=== PATIENT | female | born 1965 | race Caucasian/White ===

== ENCOUNTER → 2017-04-06 | Outpatient (CLI) | payer MEDICARE, OTHER, SELFPAY | LOC: MW.CHPS 08:00 | PROVIDERS: ATTEND Plastic Surgery | DX: M65.312 Trigger thumb, left thumb (principal) | CPT/HCPCS: 20550; 99214; J3301 ==

== ENCOUNTER 2017-04-29 06:32 | Day surgery (SDC) | payer MEDICARE, OTHER, SELFPAY ==
[2017-04-29] MEDS ORDERED: Midazolam 1 MG/ML 2 ML SDV ONE (06:57)
[2017-04-29] MEDS ORDERED: fentaNYL 100 MCG/2 ML SDV ONE (06:57)
[2017-04-29] MEDS ORDERED: Propofol 200 MG/20 ML SDV ONE (06:57)
[2017-04-29] MEDS ORDERED: ceFAZolin 1 GM Vial ONE (06:59)
--- NOTE | 2017-04-29 07:10 | PCM.PREANE ---
Preanesthetic Assessment - Anesthesia/Transfusion/Family Hx Anesthesia History: Prior Anesthesia Without Reaction Other Type of Anesthesia Reaction Comment: Denies any problems in past Family History of Anesthesia Reaction: No Transfusion History: Prior Transfusion Without Reaction Intubation History: Unknown - Review of Systems General: No Symptoms Pulmonary: No Symptoms Cardiovascular: No Symptoms Gastrointestinal: No symptoms Neurological: No Symptoms Other: Reports: None - Physical Assessment O2 Sat by Pulse Oximetry: 96 Respiratory Rate: 16 Vital Signs: Last Vital Signs Temp 37.1 C 04/29/17 07:01 Pulse 61 04/29/17 07:01 Resp 16 04/29/17 07:01 BP 115/67 04/29/17 07:01 Pulse Ox 96 04/29/17 07:01 Height: 1.75 m Weight: 81.193 kg ASA Class: 2 Mental Status: Alert & Oriented x3 Airway Class: Mallampati = 2 Dentition: Reports: Dentures (upper and lower) Thyro-Mental Finger Breadths: 3 Mouth Opening Finger Breadths: 3 ROM/Head Extension: Limited/Partial Lungs: Clear to auscultation, Normal respiratory effort Cardiovascular: Regular Rate, Regular Rhythm - Allergies Allergies/Adverse Reactions: Allergies Allergy/AdvReac Type Severity Reaction Status Date / Time aspirin Allergy thrombocyto Verified 04/23/17 12:38 penia codeine Allergy Stomach Verified 02/05/15 14:29 Ache - Blood Blood Available: No - Anesthesia Plan Pre-Op Medication Ordered: None - Acknowledgements Anesthesia Type Planned: MAC Pt an Appropriate Candidate for the Planned Anesthesia: Yes Alternatives and Risks of Anesthesia Discussed w Pt/Guardian: Yes Pt/Guardian Understands and Agrees with Anesthesia Plan: Yes PreAnesthesia Questionnaire HEENT History: Reports: Allergic Rhinitis Other HEENT History: wears glasses, has top and bottom dentures Cardiovascular History: Respiratory History: Reports: Bronchitis, Recurrent, Other (See Below) Other Respiratory History: chronic bronchitis Gastrointestinal History: Reports: Other (See Below) Other Gastrointestinal History: h/o gastric ulcer Genitourinary History: Reports: Renal Calculus, Other (See Below) Other Genitourinary History: 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 CREDIT RISK ANALYST History: Reports: Musculoskeletal History: Reports: Fibromyalgia, Osteoarthritis Neurological History: Reports: Migraines (h/o migraines) Endocrine/Metabolic History: Reports: None Hematologic History: Reports: Blood Transfusion(s) Other Hematologic History: blood transfusion for post bleed Oncologic (Cancer) History: Dermatologic History: Reports: Other (See Below) Other Dermatologic History: hx I&D skin abscess - Past Surgical History Head Surgeries/Procedures: Reports: None HEENT Surgical History: Reports: Tonsillectomy GI Surgical History: Reports: Cholecystectomy, EGD, Other (See Below) (I&D of perianal abscess) Female Surgical History: Reports: Hysterectomy, Nephrectomy (partial), Tubal Ligation Neurological Surgical History: Reports: C-Spine Other Neurological Surgeries/Procedures: hx neck surgery (ACDF) Musculoskeletal Surgical History: Reports: Arthroscopic Knee, Carpal Tunnel Other Musculoskeletal Surgeries/Procedures:: knee arthroscopy x2, rt thumb trigger finger release, francisco carpal tunnel release - SUBSTANCE USE Smoking Status *Q: Current Every Day Smoker (down to 1/2 ppd) Tobacco Use Within Last Twelve Months: Cigarettes Second Hand Smoke Exposure: Yes Days Per Week of Alcohol Use: 0 Number of Drinks Per Day: 0 Total Drinks Per Week: 0 Recreational Drug Use History: No - HOME MEDS Home Medications: Home Meds Albuterol Sulfate [Albuterol Sulfate HFA] 1 - 2 inh INH ASDIRECTED PRN 02/05/15 [History] traMADol HCl [Tramadol HCl] 1 tab PO ASDIRECTED PRN 02/05/15 [History] - CURRENT (IN HOUSE) MEDS Current Meds: Current Medications Bupivacaine HCl/Epinephrine Bitart (Marcaine 0.25%/Epinephrine 1:200,000) 10 ml INJECT ONETIME ONE Stop: 04/29/17 08:01 Lactated Ringer's (Ringers, Lactated) 1,000 mls @ 125 mls/hr IV ASDIRECTED ZHENG Last Admin: 04/29/17 07:00 Dose: 125 mls/hr Cefazolin Sodium/Dextrose 2 gm (/ Premix) 50 mls @ 100 mls/hr IV ONETIME ONE Stop: 04/29/17 07:59 Tramadol HCl (Ultram) 50 mg PO Q4H PRN PRN Reason: Pain Discontinued Medications Cefazolin Sodium (Ancef) Confirm Administered Dose 2 gm .ROUTE .STK-MED ONE Stop: 04/29/17 07:00 Fentanyl (Sublimaze) Confirm Administered Dose 100 mcg .ROUTE .STK-MED ONE Stop: 04/29/17 06:58 Midazolam HCl (Versed 1 Mg/Ml) Confirm Administered Dose 2 mg .ROUTE .STK-MED ONE Stop: 04/29/17 06:58 Propofol (Diprivan 20 Ml) Confirm Administered Dose 200 mg .ROUTE .STK-MED ONE Stop: 04/29/17 06:58
[2017-04-29] MEDS ORDERED: Bupivacaine 0.25%/EPINEPHrine 1:200,000 10 ML SDV ONE (07:12)
[2017-04-29] MEDS ORDERED: ceFAZolin 2 GM in Premix Bag 1 BAG IV ONE (07:30)
[2017-04-29] MEDS ORDERED: Lactated Ringers 1,000 ML IV SCH (08:00)
[2017-04-29] MEDS ORDERED: Bupivacaine 0.25%/EPINEPHrine 1:200,000 10 ML SDV INJECT ONE (08:00)
[2017-04-29] MEDS ORDERED: traMADol 50 MG Tab PO PRN (08:00)
[2017-04-29] MEDS ORDERED: fentaNYL 100 MCG/2 ML SDV IVPUSH PRN (08:31)
--- NOTE | 2017-04-29 08:49 | PCM.OPNOTE ---
- General Post-Op/Procedure Note Date of Surgery/Procedure: 04/29/17 Operative Procedure(s): left thumb trigger finger release Pre Op Diagnosis: left trigger thumb Post-Op Diagnosis: Same Anesthesia Technique: Local, MAC Primary Surgeon: Yoly Ly [employer] Mock Up Mechanic: Charlee Roberts Complications: None Condition: Good Free Text/Narrative:: Intake & Output 04/28/17 04/29/17 04/29/17 23:59 07:59 15:59 Intake Total 750 Balance 750
[2017-04-29 14:22] VITALS: BP 122/70
--- NOTE | 2017-04-29 17:44 | OR ---
SURGEON: DENEEN COE MD DATE OF PROCEDURE: 04/29/2017 PREOPERATIVE DIAGNOSIS: Left thumb trigger thumb. POSTOPERATIVE DIAGNOSIS: Left thumb trigger thumb. PROCEDURE: Left thumb trigger finger release. FINE GRADER: Charlee Roberts. INDICATIONS: Ms. Marcus is a 52-year-old female with left thumb trigger thumb. This is causing her significant pain. It was quite large and catches routinely. She has tried injections and these have failed. Risks and benefits of the excision were discussed with her and she was in agreement to proceed. Risks were including, but not limited to, bleeding, infection, damage to underlying or overlying structures, possible need for future interventions and possible scarring. PROCEDURAL IN DETAIL: After informed consent was obtained and placed on the chart, the patient was brought to the operating theater and laid in the supine position. After adequate local MAC anesthetic was obtained, the area was prepped and draped in a normal fashion and time-out was completed to confirm side and site. Attention was then paid to local anesthetic infiltration and the arm was exsanguinated and the tourniquet was inflated to 200 mmHg after prepped and draped in a normal fashion. Attention was then paid to dissection over the A1 michel of the left thumb. Dissection was carried horizontally through the skin using a 15 blade and deep dissecting with a Littler scissor. Direct visualization of the A1 michel was attained and the A1 michel was sharply incised using a 15 blade and then dissecting distally and proximally using the Littler scissors to ensure complete release while protecting the surrounding structures. Once adequately released, the thumb was put through range of motion. No triggering was appreciated. The nodule was present on the tendon, but it was freed. Once adequately treated, this was copiously irrigated and closed using 5-0 nylon stitch in a horizontal mattress fashion. The patient tolerated the procedure well. All counts of needles were correct at the end of the case. FOLLOWUP INSTRUCTIONS: The patient will see us in clinic in 10 to 14 days for suture removal, sooner if any problems, questions, or concerns. She was given a prescription for pain control. HEGGTHE / JUSTINL /[id number]
== END 2017-04-29 09:10 | disposition home or self-care (01) ==
LOC: MW.SDS 06:32
PROVIDERS: ATTEND Plastic Surgery
DX: M65.312 Trigger thumb, left thumb (principal); Z98.890 Other specified postprocedural states
CPT/HCPCS: 26055; J2250; J3010; J7120; 01810; J0690; J2704